=== PATIENT | male | born 2000 | race Caucasian/White ===

== ENCOUNTER → 2018-05-08 | Outpatient (CLI) | payer OTHER | LOC: BMCIMAGING 18:19 | PROVIDERS: ATTEND Family Medicine | DX: M25.532 Pain in left wrist (principal) ==

== ENCOUNTER 2018-12-02 15:44 | Emergency (ER) | payer OTHER ==
[2018-12-02] MEDS ORDERED: NS 1,000 ML IV ONE (16:18)
--- NOTE | 2018-12-02 16:35 | EDPHY ---
H & P Time Seen by Provider: 12/02/18 15:46 HPI/ROS: CHIEF COMPLAINT: Palpitations syncope HISTORY OF PRESENT ILLNESS: 18-year-old male presents after an episode of palpitations, tachycardia and syncope. Patient had use [employer] epoxy to fix the glass portion of his water bong. He reports he waited the required 30 min after gluing the pieces together and he smoked marijuana. Approximally 15 min later he began to feel lightheaded, heart racing, headache, and anxiety. Her rate was in the 120s on grain picker arrival, however, the patient had a vasovagal syncopal event when the paramedics for placing an IV and when he recovered, his heart rate was in the normal range. Currently he complains of mild chest discomfort, mild headache, no palpitations. Patient reports only marijuana was used. Reports it was his typical marijuana from his usual distributor. REVIEW OF SYSTEMS: A comprehensive 10 system review of systems was reviewed and is otherwise negative aside from elements mentioned in the history of present illness and medical decision making. PAST MEDICAL HISTORY: Patient denies. SOCIAL HISTORY: Nonsmoker, no alcohol. VITAL SIGNS: see nurse's notes. Heart rate in 80s GENERAL: Well-developed, well-nourished, in no obvious discomfort. HEENT: Atraumatic. Eyes: No injection or icterus. Oropharynx: Moist mucous membranes. No erythema, no injection, no swelling. Neck: No JVD, no bruits, supple with no adenopathy. LUNGS: Clear to auscultation bilaterally, no wheezes, rhonchi or rales. No crepitus palpable. CARDIAC: Regular rate and rhythm, no murmurs, no rubs, no gallops. ABDOMEN: Soft, nontender, nondistended, bowel sounds normal. BACK: No CVA tenderness. EXTREMITIES: No trauma. Range of motion is normal throughout. NEURO: Alert and oriented , grossly nonfocal. SKIN: No diaphoresis, warm and dry, no rash. Smoking Status: Never smoked Constitutional: Initial Vital Signs Temperature (C) 36.3 C 12/02/18 15:54 Heart Rate 92 12/02/18 15:54 Respiratory Rate 16 12/02/18 15:54 Blood Pressure 120/71 12/02/18 15:54 O2 Sat (%) 99 12/02/18 15:54 O2 Delivery Mode Room Air Allergies/Adverse Reactions: No Known Allergies Allergy (Unverified 12/02/18 15:57) Home Medications: Medication Instructions Recorded NK [No Known Home Meds] 12/02/18 Medical Decision Making - Diagnostics EKG Interpretation: 12-LEAD EKG: Please see the full report in [facility]. My interpretation: Sinus rhythm, no ST or T-wave changes. No prolonged QT. ED Course/Re-evaluation: Ingredient list for [employer] epoxy includes for females, silica. Poison Center was consulted with respect to the patient's specific if product, inhalation is not felt to be a usual route of exposure and no specific recommendations were made. Patient's lungs are clear to auscultation, tachycardia had resolved, patient received a L of normal saline, was feeling better, was discharged. Differential Diagnosis: Differential diagnosis for the patient's presenting complaints considered including but not limited to inhalation injury, acute pneumonitis, cardiac sensitization to Hydrocarbons, pneumomediastinum, dehydration, anxiety, vasovagal syncope. - Data Points Laboratory Results: Laboratory Results 12/02/18 15:54 Medications Given: Discontinued Medications Sodium Chloride (Ns) 1,000 mls @ 0 mls/hr IV ONCE ONE; Wide Open PRN Reason: Protocol Stop: 12/02/18 16:19 Last Admin: 12/02/18 16:26 Dose: 1,000 mls Point of Care Test Results: Chemistry 12/02/18 16:30 POC Troponin I 0.00 ng/mL ng/mL (0.00-0.08) Departure - Departure Disposition: Home, Routine, Self-Care Clinical Impression: Heart palpitations, Syncope Condition: Good Instructions: Heart Palpitations (ED), Syncope (ED), Lightheadedness (ED) Additional Instructions: Please drink plenty of fluid. Get plenty of rest. Return to the emergency department if the symptoms recur. Referrals: NONE *PRIMARY CARE P,. [Primary Care Provider] - As per Instructions
--- NOTE | 2018-12-02 17:30 | CPEKG ---
Test Reason : OPEN Blood Pressure : / mmHG Vent. Rate : 080 BPM Atrial Rate : 078 BPM P-R Int : 157 ms QRS Dur : 098 ms QT Int : 388 ms P-R-T Axes : 072 086 062 degrees QTc Int : 448 ms Sinus rhythm Right atrial enlargement Confirmed by Mary Melendrez ([id number]) on 12/02/2018 5:30:44 PM Referred By: Mary Melendrez Confirmed By:Mary Melendrez
[2018-12-02 17:35] VITALS: BP 110/73
== END 2018-12-02 17:34 | disposition home or self-care (01) ==
LOC: EDUNIT#
DX: R00.2 Palpitations (principal); R55 Syncope and collapse; E86.9 Volume depletion, unspecified
CPT/HCPCS: 84484-ER